=== PATIENT | female | born 1990 | race Caucasian/White ===

== ENCOUNTER 2016-07-23 10:34 | Emergency (ER) | payer MEDICAID ==
[2016-07-23 12:02] LABS: URINE APPEARANCE SL CLOUDY; URINE BILIRUBIN NEGATIVE (NEGATIVE); URINE BLOOD NEGATIVE (NEGATIVE); URINE COLOR YELLOW; URINE GLUCOSE (UA) NEGATIVE (NEGATIVE); URINE KETONE NEGATIVE (NEGATIVE); URINE LEUKOCYTE ESTERASE NEGATIVE (NEGATIVE); URINE NITRITE NEGATIVE (NEGATIVE); URINE PROTEIN NEGATIVE (NEGATIVE); URINE UROBILINOGEN 0.2 E.U./dL (0.20 - 1.00)
[2016-07-23 12:03] LABS: HCG,QUALITATIVE URINE POSITIVE (NEGATIVE)
[2016-07-23 12:32] LABS: BASO % 0.2 % (0-6); EOS % 0.6 % (0-6); GRAN % 61.4 % (47-80); HEMATOCRIT 40.7 % (35.0-47.0); HEMOGLOBIN 13.5 gm/dl (11.6-16.0); MEAN CELL VOLUME 94.4 fl (81-97); MEAN CORPUSCULAR HEMOGLOBIN 31.3 pg (27-33); MEAN CORPUSCULAR HGB CONC 33.2 g/dl (32-36); MEAN PLATELET VOLUME 9.6 fl (7.4-10.4); MONO % 10.8 % (0-9); PLATELET COUNT 217 K/uL (130-400); RED BLOOD COUNT 4.31 M/uL (3.80-5.40); RED CELL DISTRIBUTION WIDTH 13.1 % (11.5-14.5); WHITE BLOOD COUNT W/O DIFF 5.5 K/uL (4.2-12.2)
--- NOTE | 2016-07-23 14:08 | Emergency Department Record ---
History of Present Illness - General Chief complaint: Vaginal bleeding Stated complaint: CRAMPING/SPOTTING/7 WEEKS PREG Time Seen by Provider: 07/23/16 11:28 Source: Patient Mode of Arrival: Ambulatory Limitations: No limitations - History of Present Illness Initial comments: pt had some spotting and cramping which is gone now. pt called her ob and was told to go to the er and have an us.she thinks she is 7 wks preg. she is [id number] MD Complaint: Vaginal bleeding Onset/Timin -: Days(s) Location: LLQ Radiation: Non-radiating Severity: Mild Severity scale (1-10): 2 Quality: Cramping Consistency: Intermittent Improves with: None Worsens with: None Patient : Yes LMP Date: 06/04/16 Gestational Age (wks) based on LMP: 7 Associated Symptoms: Nausea/vomiting, Vaginal bleeding - Related Data Sexually active: Yes : 3 Para: 1 Home Medications Medication Instructions Recorded Confirmed Last Taken Pnv95/Ferrous Fumarate/FA 1 each PO DAILY 07/23/16 07/23/16 Unknown [ Tablet] Allergies Allergy/AdvReac Type Severity Reaction Status Date / Time amoxicillin [Amoxicillin] Allergy HIVES Verified 07/23/16 10:58 hydromorphone HCl Allergy HIVES Verified 07/23/16 10:58 [From Dilaudid] morphine Allergy HIVES Verified 07/23/16 10:58 sulfamethoxazole Allergy HIVES Verified 07/23/16 10:58 [From Bactrim] trimethoprim [From Bactrim] Allergy HIVES Verified 07/23/16 10:58 Travel Screening - Travel/Exposure Within Last 30 Days Have you traveled within the last 30 days?: No Review of Systems Reviewed: No additional complaints except as noted below Constitutional: Reports: As per HPI. Denies: Chills, Fever, Malaise, Night sweats, Weakness, Weight change Eyes: Reports: As per HPI. Denies: Eye discharge, Eye pain, Photophobia, Vision change ENT: Reports: As per HPI. Denies: Congestion, Dental pain, Ear pain, Epistaxis , Hearing loss, Throat pain Respiratory: Reports: As per HPI. Denies: Cough, Dyspnea, Hemoptysis, Stridor, Wheezes Cardiovascular: Reports: As per HPI. Denies: Arrhythmia, Chest pain, Dyspnea on exertion, Edema, Murmurs, Orthopnea, Palpitations, Paroxysmal nocturnal dyspnea, Rheumatic Fever, Syncope Endocrine: Reports: As per HPI. Denies: Fatigue, Heat or cold intolerance, Polydipsia, Polyuria Gastrointestinal: Reports: As per HPI. Denies: Abdominal pain, Constipation, Diarrhea, Hematemesis, Hematochezia, Melena, Nausea, Vomiting Genitourinary: Reports: As per HPI. Denies: Abnormal menses, Discharge, Dyspareunia, Dysuria, Frequency, Hematuria, Incontinence, Retention, Urgency Musculoskeletal: Reports: As per HPI. Denies: Arthralgia, Back pain, Gout, Joint swelling, Myalgia, Neck pain Skin: Reports: As per HPI. Denies: Bruising, Change in color, Change in hair/ nails, Lesions, Pruritus, Rash Neurological: Reports: As per HPI. Denies: Abnormal gait, Confusion, Headache, Numbness, Paresthesias, Seizure, Tingling, Tremors, Vertigo, Weakness Psychiatric: Reports: As per HPI. Denies: Anxiety, Auditory hallucinations, Depression, Homicidal thoughts, Suicidal thoughts, Visual hallucinations Hematological/Lymphatic: Reports: As per HPI. Denies: Anemia, Blood Clots, Easy bleeding, Easy bruising, Swollen glands Past Medical History - SOCIAL HISTORY Smoking Status: Current every day smoker Alcohol Use: None Drug Use: None - [employer] History : 3 Para: 1 - RESPIRATORY Hx Respiratory Disorders: No - CARDIOVASCULAR Hx Cardio Disorders: No - NEURO Hx Neuro Disorders: No - GI Hx GI Disorders: No - Hx Genitourinary Disorders: Yes Comment:: polycystic ovaries - ENDOCRINE Hx Endocrine Disorders: No - MUSCULOSKELETAL Hx Musculoskeletal Disorders: Yes Hx Back Injury: Yes Hx Musculoskeletal Disease: Yes (scoliosis) - PSYCH Hx Psych Problems: Yes Hx Anxiety: Yes - HEMATOLOGY/ONCOLOGY Hx Hematology/Oncology Disorders: No Family Medical History Any Significant Family History?: Yes Hx Cancer: Father, Mother Hx Diabetes: Grandparents Hx Heart Disease: Grandparents Physical Exam - General General Appearance: Alert, Oriented x3, Cooperative, No acute distress - Head Head exam: Normal inspection - Eye Eye exam: Normal appearance, PERRL, EOMI Pupils: Normal accommodation - ENT ENT exam: Normal exam, Mucous membranes moist, Normal external ear exam, Normal orophraynx Ear exam: Normal external inspection. negative: External canal tenderness Nasal Exam: Normal inspection. negative: Discharge, Sinus tenderness Mouth exam: Normal external inspection, Tongue normal Teeth exam: Normal inspection. negative: Dental caries Throat exam: Normal inspection. negative: Tonsillar erythema, Tonsillar exudate - Neck Neck exam: Normal inspection, Full ROM. negative: Tenderness - Respiratory Respiratory exam: Normal lung sounds bilaterally. negative: Respiratory distress - Cardiovascular Cardiovascular Exam: Regular rate, Normal rhythm, Normal heart sounds - GI/Abdominal GI/Abdominal exam: Soft, Normal bowel sounds. negative: Tenderness - Rectal Rectal exam: Deferred - exam: Deferred - Extremities Extremities exam: Normal inspection, Full ROM, Normal capillary refill. negative: Tenderness - Back Back exam: Reports: Normal inspection, Full ROM. Denies: Muscle spasm, Rash noted, Tenderness - Neurological Neurological exam: Alert, CN II-XII intact, Normal gait, Oriented X3 - Psychiatric Psychiatric exam: Normal affect, Normal mood - Skin Skin exam: Dry, Intact, Normal color, Warm Course Vital Signs 07/23/16 10:53 Temperature 98.2 F Pulse Rate 96 H Respiratory 18 Rate Blood Pressure 108/78 Pulse Ox 97 - Reevaluation(s) Reevaluation #1: 07/23/16 14:22 us shows 5wk iup yolk sack. Medical Decision Making - Lab Data Result diagrams: 07/23/16 12:27 Lab Results 07/23/16 07/23/16 07/23/16 Range/Units 11:15 12:27 12:27 WBC 5.5 (4.2-12.2) K/uL RBC 4.31 (3.80-5.40) M/uL Hgb 13.5 (11.6-16.0) gm/dl Hct 40.7 (35.0-47.0) % MCV 94.4 (81-97) fl MCH 31.3 (27-33) pg MCHC 33.2 (32-36) g/dl RDW 13.1 (11.5-14.5) % Plt Count 217 (130-400) K/uL MPV 9.6 (7.4-10.4) fl Gran % 61.4 (47-80) % Lymphocytes % 27.0 (16-45) % Monocytes % 10.8 H (0-9) % Eosinophils % 0.6 (0-6) % Basophils % 0.2 (0-6) % Total Beta HCG mIU/mL Urine Color Yellow Urine Appearance Sl cloudy Urine pH 8.0 (5.0-8.0) Ur Specific [place] 1.015 (1.002-1.030) Urine Protein Negative (NEGATIVE) Urine Glucose (UA) Negative (NEGATIVE) Urine Ketones Negative (NEGATIVE) Urine Blood Negative (NEGATIVE) Urine Nitrite Negative (NEGATIVE) Urine Bilirubin Negative (NEGATIVE) Urine Urobilinogen 0.2 (0.20 - 1.00) E.U./dL Ur Leukocyte Esterase Negative (NEGATIVE) Urine HCG, Qual Positive H (NEGATIVE) Rh Factor Positive 07/23/16 Range/Units 12:27 WBC (4.2-12.2) K/uL RBC (3.80-5.40) M/uL Hgb (11.6-16.0) gm/dl Hct (35.0-47.0) % MCV (81-97) fl MCH (27-33) pg MCHC (32-36) g/dl RDW (11.5-14.5) % Plt Count (130-400) K/uL MPV (7.4-10.4) fl Gran % (47-80) % Lymphocytes % (16-45) % Monocytes % (0-9) % Eosinophils % (0-6) % Basophils % (0-6) % Total Beta HCG 19137.00 mIU/mL Urine Color Urine Appearance Urine pH (5.0-8.0) Ur Specific [place] (1.002-1.030) Urine Protein (NEGATIVE) Urine Glucose (UA) (NEGATIVE) Urine Ketones (NEGATIVE) Urine Blood (NEGATIVE) Urine Nitrite (NEGATIVE) Urine Bilirubin (NEGATIVE) Urine Urobilinogen (0.20 - 1.00) E.U./dL Ur Leukocyte Esterase (NEGATIVE) Urine HCG, Qual (NEGATIVE) Rh Factor Disposition Disposition: Discharge Clinical Impression: Threatened Disposition: Home, Self-Care Condition: (1) Good Instructions: Threatened Miscarriage (ED) Additional Instructions: follow up with ob doctor. return sooner if worse. have repeat beta quant in 2 days. no sex until cleared by ob. Forms: Patient Portal Access
== END 2016-07-23 14:34 | disposition home or self-care (01) ==
LOC: ER 10:34
DX: O20.0 Threatened abortion (principal); Z3A.01 Less than 8 weeks gestation of pregnancy
CPT/HCPCS: 76801; 76817; 81003; 81025; 84702; 85025; 86901; 99283; 99284

== ENCOUNTER 2016-10-03 17:53 | Emergency (ER) | payer MEDICAID ==
[2016-10-03] MEDS ORDERED: LORAZEPAM 0.5 MG TABLET PO ONE ×2 (18:13→18:55)
--- NOTE | 2016-10-03 18:13 | Emergency Department Record ---
Anxiety - General Chief Complaint: Panic attack Stated Complaint: ANXIETY/PANIC ATTACK Time Seen by Provider: 10/03/16 17:58 Source: Patient Mode of Arrival: Ambulatory Limitations: No limitations - History of Present Illness Initial Comments: 25 yo female presents with anxiety attacks and passing out last night. Recently she has again started having panic attacks. She has heart palpitations , rapid breathing, numbness, of the face and hands. She has had panic attacks in the past due to loss of a to an illness. Last night she was having a panic attack and passed out briefly. She was seen by her PCP in the past for anxiety/panic attacks. She was referred to a therapist but did not go. She felt she might be able over come the panic attacks on her own. No history of heart issues or syncope. MD Complaint: Anxiety Onset/Timin -: Days(s) Symptoms: Extremity numbness/tingling Place: Home Previous History of Same: Yes (this is worse) Severity: Moderate Quality: Intermittant Provoking factors: None known Improves With: Nothing Worsens With: Nothing Associated symptoms: Anorexia - Related Data Home Medications: Previous Rx's Medication Instructions Recorded Cephalexin [Keflex] 500 mg PO TID #21 cap 10/03/16 Lorazepam [Ativan] 0.5 mg PO Q8H PRN #12 tablet 10/03/16 Allergies/Adverse Reactions: Allergies Allergy/AdvReac Type Severity Reaction Status Date / Time amoxicillin [Amoxicillin] Allergy HIVES Verified 07/23/16 10:58 hydromorphone HCl Allergy HIVES Verified 07/23/16 10:58 [From Dilaudid] morphine Allergy HIVES Verified 07/23/16 10:58 sulfamethoxazole Allergy HIVES Verified 07/23/16 10:58 [From Bactrim] trimethoprim [From Bactrim] Allergy HIVES Verified 07/23/16 10:58 Travel Screening - Travel/Exposure Within Last 30 Days Have you traveled within the last 30 days?: No Review of Systems Constitutional: Denies: Chills, Fever, Malaise, Weakness Eyes: Denies: Eye discharge, Eye pain, Photophobia, Vision change ENT: Denies: Congestion, Ear pain, Throat pain Respiratory: Denies: Cough, Dyspnea, Hemoptysis, Stridor, Wheezes Cardiovascular: Reports: As per HPI, Syncope. Denies: Chest pain Endocrine: Denies: Polydipsia, Polyuria Gastrointestinal: Denies: Abdominal pain, Diarrhea, Nausea, Vomiting Genitourinary: Denies: Dysuria Musculoskeletal: Denies: Arthralgia, Back pain, Myalgia, Neck pain Skin: Denies: Bruising, Change in color, Rash Neurological: Reports: As per HPI, Numbness, Tingling. Denies: Headache Psychiatric: Reports: As per HPI, Anxiety. Denies: Depression, Suicidal thoughts Hematological/Lymphatic: Denies: Easy bleeding, Easy bruising Past Medical History - SOCIAL HISTORY Smoking Status: Current every day smoker Alcohol Use: None Drug Use: None - RESPIRATORY Hx Respiratory Disorders: No - CARDIOVASCULAR Hx Cardio Disorders: No - NEURO Hx Neuro Disorders: No - GI Hx GI Disorders: No - Hx Genitourinary Disorders: Yes Comment:: polycystic ovaries - ENDOCRINE Hx Endocrine Disorders: No - MUSCULOSKELETAL Hx Musculoskeletal Disorders: Yes Hx Back Injury: Yes Hx Musculoskeletal Disease: Yes (scoliosis) - PSYCH Hx Psych Problems: Yes Hx Anxiety: Yes - HEMATOLOGY/ONCOLOGY Hx Hematology/Oncology Disorders: No Family Medical History Any Significant Family History?: Yes Hx Cancer: Father, Mother Hx Diabetes: Grandparents Hx Heart Disease: Grandparents Physical Exam - General General Appearance: Alert, Oriented x3, Cooperative, No acute distress, Other ( Appear calm, no distress) - Head Head exam: Normal inspection - Eye Eye exam: Normal appearance, PERRL. negative: Conjunctival injection, Periorbital swelling - ENT ENT exam: Normal exam Ear exam: Normal external inspection Nasal Exam: Normal inspection Mouth exam: Normal external inspection Teeth exam: Normal inspection - Neck Neck exam: Normal inspection, Full ROM. negative: Lymphadenopathy, Tenderness, Thyromegaly - Respiratory Respiratory exam: Normal lung sounds bilaterally. negative: Respiratory distress - Cardiovascular Cardiovascular Exam: Regular rate, Normal rhythm, Normal heart sounds. negative : Diastolic murmur, Systolic murmur - GI/Abdominal GI/Abdominal exam: Soft. negative: Tenderness - Rectal Rectal exam: Deferred - exam: Deferred - Extremities Extremities exam: Normal inspection, Full ROM, Normal capillary refill. negative: Tenderness - Back Back exam: Denies: Normal inspection (severe scoliosis) - Neurological Neurological exam: Alert, Oriented X3 - Psychiatric Psychiatric exam: Anxious. negative: Depressed, Manic, Suicidal ideation - Skin Skin exam: Dry, Intact, Normal color, Warm Course Vital Signs 10/03/16 17:56 Temperature 98.4 F Pulse Rate 83 Respiratory 20 Rate Blood Pressure 114/81 Pulse Ox 98 - Reevaluation(s) Reevaluation #1: EMR reviewed. She has been seen in the ED and by the PCP for anxiety attacks. 10/03/16 18:18 Reevaluation #2: EKG 18:16 NSR rate 88, intervals normal, axis normal, ST normal. No acute changes. 10/03/16 18:28 Reevaluation #3: The labs were reviewed No acute changes on CBC or CMP UA LE trace. 10/03/16 18:49 Reevaluation #4: UA micro with WBC, Bacteria She has had mild discomfort with urination for a few days. No fever or back pain Keflex prescribed 10/03/16 18:56 Medical Decision Making - Lab Data Result diagrams: 10/03/16 18:30 10/03/16 18:30 Disposition Disposition: Discharge Clinical Impression: Anxiety attack Syncope Qualifiers: Syncope type: unspecified Qualified Code(s): R55 - Syncope and collapse Disposition: Home, Self-Care Condition: (2) Stable Instructions: Panic Disorder (ED) Additional Instructions: Call [facility] Wednesday to closely follow up for your anxiety Only use the Ativan as instructed for anxiety attacks Return if you have any concerns, new questions or symptoms Prescriptions: Cephalexin [Keflex] 500 mg PO TID #21 cap Lorazepam [Ativan] 0.5 mg PO Q8H PRN #12 tablet PRN Reason: Anxiety Forms: Patient Portal Access Time of Disposition: 18:57 Quality - Quality Measures Quality Measures: N/A - Blood Pressure Screening View Details: Yes Blood Pressure Classification: Pre-Hypertensive BP Reading Systolic Measurement: 114 Diastolic Measurement: 81 Screening for High Blood Pressure: < Normal BP, F/U Not Required > [G8783] Normal BP Follow-up Interventions: No follow-up required
[2016-10-03 18:35] LABS: BASO % 0.3 % (0-6); EOS % 0.3 % (0-6); GRAN % 72.4 % (47-80); HEMOGLOBIN 16.2 gm/dl (11.6-16.0); LYMPH % 18.8 % (16-45); MEAN CELL VOLUME 95.1 fl (81-97); MEAN CORPUSCULAR HGB CONC 34.5 g/dl (32-36); MEAN PLATELET VOLUME 10.6 fl (7.4-10.4); MONO % 8.2 % (0-9); PLATELET COUNT 175 K/uL (130-400); RED BLOOD COUNT 4.94 M/uL (3.80-5.40); RED CELL DISTRIBUTION WIDTH 12.8 % (11.5-14.5); WHITE BLOOD COUNT W/O DIFF 7.7 K/uL (4.2-12.2)
[2016-10-03 18:36] LABS: URINE APPEARANCE CLEAR; URINE BILIRUBIN NEGATIVE (NEGATIVE); URINE BLOOD TRACE-I (NEGATIVE); URINE COLOR YELLOW; URINE GLUCOSE (UA) NEGATIVE (NEGATIVE); URINE KETONE NEGATIVE (NEGATIVE); URINE LEUKOCYTE ESTERASE SMALL (NEGATIVE); URINE NITRITE NEGATIVE (NEGATIVE); URINE PROTEIN NEGATIVE (NEGATIVE); URINE UROBILINOGEN 0.2 E.U./dL (0.20 - 1.00)
[2016-10-03 18:38] LABS: MEAN CORPUSCULAR HEMOGLOBIN 32.7 pg (27-33)
[2016-10-03 18:45] LABS: ALB/GLOB RATIO 1.5 (1.1-1.8); ALBUMIN 5.1 gm/dL (3.5-5.0); ALKALINE PHOSPHATASE 54 U/L (38-126); ALT/SGPT 20 U/L (9-52); ANION GAP 15.8 (7-16); AST/SGOT 24 U/L (14-36); BILIRUBIN,TOTAL 1.04 mg/dL (0.2-1.3); BLOOD UREA NITROGEN 11 mg/dL (7-17); CARBON DIOXIDE 21.2 mmol/L (22-30); CREATININE 0.6 mg/dL (0.52-1.04); EST GLOMERULAR FILTRATION RATE > 60 ml/min; GLUCOSE,RANDOM 90 mg/dL (70-110); TOTAL PROTEIN 8.5 gm/dL (6.3-8.2)
[2016-10-03 18:48] LABS: HCG,QUALITATIVE URINE NEGATIVE (NEGATIVE)
[2016-10-03 18:52] LABS: URINE BACTERIA 2+; URINE RBC 0 - 2 (NONE SEEN)
[2016-10-03] MEDS ORDERED: CEPHALEXIN 500 MG CAPSULE PO STA (18:55)
== END 2016-10-03 19:05 | disposition home or self-care (01) ==
LOC: ER 17:53
DX: R55 Syncope and collapse (principal); R30.0 Dysuria; F41.0 Panic disorder [episodic paroxysmal anxiety]
CPT/HCPCS: 80053; 81001; 81025; 85025; 93005; 93010; 99284

== ENCOUNTER 2016-11-23 13:28 | Emergency (ER) | payer MEDICAID ==
--- NOTE | 2016-11-23 13:43 | Emergency Department Record ---
History of Present Illness - General Chief complaint: ENT Stated complaint: DENTAL PAIN Source: Patient Mode of Arrival: Ambulatory Limitations: No limitations - History of Present Illness Initial comments: 26 yo female presents with left lower posterior dental pain for 2 days. She has mild swelling. No fevers. The pain radiates to the left ear area. No swallowing changes or voice changes. No recent dental procedures or examinations. No other current illnesses. MD complaint: Tooth pain -: Days(s) (2) Location: Tooth # (16) Severity: Severe Quality: Aching, Sharp, Stabbing Consistency: Constant Improves with: None Worsens with: Eating - Related Data Previous Rx's Medication Instructions Recorded Clindamycin HCl 300 mg PO QID #28 capsule 11/23/16 Hydrocodone/Acetaminophen [[place] 1 tab PO Q8H PRN #12 tab 11/23/16 5mg/325mg] Allergies Allergy/AdvReac Type Severity Reaction Status Date / Time amoxicillin [Amoxicillin] Allergy HIVES Verified 11/23/16 13:32 hydromorphone HCl Allergy HIVES Verified 11/23/16 13:32 [From Dilaudid] morphine Allergy HIVES Verified 11/23/16 13:32 sulfamethoxazole Allergy HIVES Verified 11/23/16 13:32 [From Bactrim] trimethoprim [From Bactrim] Allergy HIVES Verified 11/23/16 13:32 Review of Systems Constitutional: Denies: Chills, Fever, Malaise, Weakness Eyes: Denies: Eye discharge, Eye pain ENT: Reports: As per HPI, Dental pain, Ear pain (left). Denies: Congestion, Throat pain Respiratory: Denies: Cough, Dyspnea Cardiovascular: Denies: Chest pain, Syncope Endocrine: Denies: Fatigue Gastrointestinal: Denies: Abdominal pain, Diarrhea, Nausea, Vomiting Genitourinary: Denies: Dysuria, Urgency Musculoskeletal: Denies: Arthralgia, Back pain, Joint swelling, Myalgia Skin: Denies: Bruising, Change in color, Rash Neurological: Denies: Headache, Numbness, Vertigo, Weakness Psychiatric: Denies: Anxiety Hematological/Lymphatic: Denies: Easy bleeding, Easy bruising, Swollen glands Past Medical History - SOCIAL HISTORY Smoking Status: Current every day smoker Drug Use: None - RESPIRATORY Hx Respiratory Disorders: No - CARDIOVASCULAR Hx Cardio Disorders: No - NEURO Hx Neuro Disorders: No - GI Hx GI Disorders: No - Hx Genitourinary Disorders: Yes Comment:: polycystic ovaries - ENDOCRINE Hx Endocrine Disorders: No - MUSCULOSKELETAL Hx Musculoskeletal Disorders: Yes Hx Back Injury: Yes Hx Musculoskeletal Disease: Yes (scoliosis) - PSYCH Hx Psych Problems: Yes Hx Anxiety: Yes - HEMATOLOGY/ONCOLOGY Hx Hematology/Oncology Disorders: No Family Medical History Hx Cancer: Father, Mother Hx Diabetes: Grandparents Hx Heart Disease: Grandparents Physical Exam - General General Appearance: Alert, Oriented x3, Cooperative, No acute distress Limitations: No limitations - Head Head exam: Atraumatic, Normocephalic, Normal inspection Head exam detail: negative: Contusion, Hematoma Image of Face/Head: 1 - mild swelling, no erythema, no warmth. no rash. tender just under the jaw , #16 with swelling around the gum. No abscess or pus. - Eye Eye exam: Normal appearance, PERRL. negative: Conjunctival injection, Periorbital swelling - ENT ENT exam: Normal exam, Mucous membranes moist, Normal orophraynx, TM's normal bilaterally (Normal left TM) Ear exam: Normal external inspection. negative: External canal tenderness Nasal Exam: Normal inspection. negative: Discharge, Sinus tenderness Mouth exam: Normal external inspection, Tongue normal Teeth exam: Dental tenderness # (16), Gingival enlargement. negative: Dental caries, Fractured tooth # Throat exam: Normal inspection. negative: Tonsillar erythema, Tonsillar exudate Image of Mouth/Teeth: 1 - mild gum swelling, no pus - Neck Neck exam: Normal inspection, Full ROM. negative: Lymphadenopathy, Meningismus , Tenderness - Respiratory Respiratory exam: Normal lung sounds bilaterally. negative: Respiratory distress - Cardiovascular Cardiovascular Exam: Regular rate, Normal rhythm, Normal heart sounds - GI/Abdominal GI/Abdominal exam: Soft - Rectal Rectal exam: Deferred - exam: Deferred - Extremities Extremities exam: Normal inspection - Back Back exam: Denies: Normal inspection (severe kyphosis) - Neurological Neurological exam: Alert, Oriented X3 - Psychiatric Psychiatric exam: Normal affect, Normal mood - Skin Skin exam: Dry, Intact, Normal color, Warm Course - Reevaluation(s) Reevaluation #1: The patient's examination is consistent with likely dental infection as the source She was given Clindamyxin in the ED She was encourage to call her dentist for follow up this week 11/23/16 13:44 Disposition Disposition: Discharge Clinical Impression: Pain, dental Disposition: Home, Self-Care Condition: (1) Good Instructions: Dental Abscess (ED) Additional Instructions: Call your dentist this week for follow up Return if worse, fever, redness, or any new concerns Prescriptions: Clindamycin HCl 300 mg PO QID #28 capsule Hydrocodone/Acetaminophen [[place] 5mg/325mg] 1 tab PO Q8H PRN #12 tab PRN Reason: Pain - General Forms: Patient Portal Access Time of Disposition: 13:45 Quality - Quality Measures Quality Measures: N/A - Blood Pressure Screening Does Patient Have Any of the Following: No Blood Pressure Classification: Pre-Hypertensive BP Reading Systolic Measurement: 118 Diastolic Measurement: 86 Screening for High Blood Pressure: < Pre-Hypertensive BP, F/U Documented > [ [id number]] Pre-Hypertensive Follow-up Interventions: Referral to alternative/primary care provider.
[2016-11-23] MEDS: CLINDAMYCIN 150 MG CAP PO ONE (13:45)
[2016-11-23] MEDS: HYDROCODONE/APAP 5/325MG TABLET PO ONE (13:45)
== END 2016-11-23 14:05 | disposition home or self-care (01) ==
LOC: ER 13:28
DX: K08.89 Other specified disorders of teeth and supporting structures (principal)
CPT/HCPCS: 99282

== ENCOUNTER 2017-02-21 14:58 | Emergency (ER) | payer MEDICAID ==
--- NOTE | 2017-02-21 15:27 | Emergency Department Record ---
History of Present Illness - General Chief complaint: Vaginal discharge Stated complaint: VAGINAL PAIN,FREQUENT URINATION,HEAVY DISCAHRGE Time Seen by Provider: 02/21/17 15:26 Source: Patient, Family Mode of Arrival: Ambulatory Limitations: No limitations - History of Present Illness Initial comments: 26 yo female presents with some discomfort with urination, vaginal discharge and pelvic discomfort. The onset was on . No bleeding. She typical has irregularly spaced menstrual cycles. The urination gutierrez as does the discharge. She does have a history of PCOS and miscarriage. No diarrhea. No fever. No cough or upper respiratory symptoms. She has a history of PCOS and 2 miscarriages. MD Complaint: Dysuria, Pelvic pain, Vaginal discharge Onset/Timin -: Days(s) Location: LLQ, Other Radiation: Non-radiating Severity scale (1-10): 9 Quality: Stabbing Consistency: Constant Improves with: Other Worsens with: Movement Associated Symptoms: Vaginal discharge, Other - Related Data Previous Rx's Medication Instructions Recorded Cephalexin [Keflex] 500 mg PO TID #21 cap 02/21/17 Doxycycline Hyclate [Doxycycline] 100 mg PO BID #14 cap 02/21/17 Hydrocodone/Acetaminophen [[place] 1 each PO Q6H #15 tablet 02/21/17 5-325 Tablet] Allergies Allergy/AdvReac Type Severity Reaction Status Date / Time amoxicillin [Amoxicillin] Allergy HIVES Verified 02/21/17 16:05 hydromorphone HCl Allergy HIVES Verified 02/21/17 16:05 [From Dilaudid] morphine Allergy HIVES Verified 02/21/17 16:05 sulfamethoxazole Allergy HIVES Verified 02/21/17 16:05 [From Bactrim] trimethoprim [From Bactrim] Allergy HIVES Verified 02/21/17 16:05 Travel Screening - Travel/Exposure Within Last 30 Days Have you traveled within the last 30 days?: No - Travel/Exposure Within Last Year Have you traveled outside the [place] in the last year?: No - Additonal Travel Details Have you been exposed to anyone with a communicable illness?: No - Travel Symptoms Symptom Screening: None Review of Systems Constitutional: Denies: Chills, Fever, Malaise, Weakness Eyes: Denies: Eye discharge ENT: Denies: Congestion, Throat pain Respiratory: Denies: Cough, Dyspnea, Hemoptysis, Wheezes Cardiovascular: Denies: Chest pain, Syncope Endocrine: Denies: Fatigue Gastrointestinal: Reports: Abdominal pain, Nausea (few days ago, resolved. Non now.). Denies: Diarrhea, Vomiting Genitourinary: Reports: Abnormal menses, Discharge, Dysuria, Frequency, Urgency Musculoskeletal: Denies: Arthralgia, Back pain, Myalgia, Neck pain Skin: Denies: Bruising, Change in color, Rash Neurological: Denies: Headache, Numbness, Weakness Psychiatric: Denies: Anxiety Hematological/Lymphatic: Denies: Blood Clots, Easy bleeding, Easy bruising, Swollen glands Past Medical History - SOCIAL HISTORY Smoking Status: Current every day smoker Alcohol Use: None Drug Use: None - RESPIRATORY Hx Respiratory Disorders: No - CARDIOVASCULAR Hx Cardio Disorders: No - NEURO Hx Neuro Disorders: No - GI Hx GI Disorders: No - Hx Genitourinary Disorders: Yes Comment:: polycystic ovaries - ENDOCRINE Hx Endocrine Disorders: No - MUSCULOSKELETAL Hx Musculoskeletal Disorders: Yes Hx Back Injury: Yes Hx Musculoskeletal Disease: Yes (scoliosis) - PSYCH Hx Psych Problems: Yes Hx Anxiety: Yes - HEMATOLOGY/ONCOLOGY Hx Hematology/Oncology Disorders: No Family Medical History Any Significant Family History?: Yes Hx Cancer: Father, Mother Hx Diabetes: Grandparents Hx Heart Disease: Grandparents Physical Exam - General General Appearance: Alert, Oriented x3, Cooperative, No acute distress Limitations: No limitations - Head Head exam: Normal inspection - Eye Eye exam: Normal appearance, PERRL. negative: Conjunctival injection, Scleral icterus - ENT ENT exam: Normal exam, Mucous membranes moist Ear exam: Normal external inspection Nasal Exam: Normal inspection - Neck Neck exam: Normal inspection - GI/Abdominal GI/Abdominal exam: Soft - Rectal Rectal exam: Normal inspection - exam: Adnexal tenderness (L), Normal external exam, Vaginal discharge, Other. negative: Abnormal external exam, Adnexal mass (L), Adnexal mass (R), Adnexal tenderness (R), Cervical discharge, cervical motion tenderness, Normal bimanual exam (On bimanual then is a firm palpable area in the vaginal vault to the left, ), Vaginal bleeding, Vaginal erythema - Extremities Extremities exam: Normal inspection - Back Back exam: Reports: Full ROM. Denies: Normal inspection (scoliosis), Muscle spasm, Rash noted, Tenderness - Neurological Neurological exam: Alert, Normal gait, Oriented X3 - Psychiatric Psychiatric exam: Normal affect, Normal mood - Skin Skin exam: Dry, Intact, Normal color, Warm Course Vital Signs 02/21/17 15:18 Temperature 98.6 F Pulse Rate 92 H Respiratory 18 Rate Blood Pressure 126/99 Pulse Ox 99 - Reevaluation(s) Reevaluation #1: 02/21/17 16:21 The HCG was negative The Wet Prep is negative The UA is positive for LE and bacteria with some epi's Given her symptoms with dysuria she will be treated with antibiotics with culture of UA 02/21/17 16:29 The results were discussed with the patient We discussed options of arranging and US tonight in a transfer Given the tender firm area within the vagina I recommend US and possible UNIT CLERK consult She is in agreement and willing to transfer by POV 02/21/17 16:43 02/21/17 16:52 I SW the [facility] ED attending Dr Simpson He agrees with accepting the transfer for possible US/ UNIT CLERK consult 02/21/17 17:01 Doxycycline added to Rx list and sent to her pharmacy Disposition Disposition: Discharge Clinical Impression: Dysuria, Pelvic pain Disposition: Home, Self-Care Transfer To: [facility] ED Reason For Transfer: Pelvic pain, US, UNIT CLERK Consult Accepting Physician: Calvin Time Discussed w/Accepting Physician: 16:39 Condition: (1) Good Instructions: Pelvic Pain in Women (ED), Dysuria (ED) Additional Instructions: I recommend transfer to the [facility] ER for possible US or profile shaper operator consultation Prescriptions: Cephalexin [Keflex] 500 mg PO TID #21 cap Doxycycline Hyclate [Doxycycline] 100 mg PO BID #14 cap Hydrocodone/Acetaminophen [Bruner 5-325 Tablet] 1 each PO Q6H #15 tablet Forms: Patient Portal Access Time of Disposition: 16:28 Quality - Quality Measures Quality Measures: N/A - Blood Pressure Screening Does Patient Have Any of the Following: No Blood Pressure Classification: Pre-Hypertensive BP Reading Systolic Measurement: 122 Diastolic Measurement: 86 Screening for High Blood Pressure: < Pre-Hypertensive BP, F/U Documented > [ G8950] Pre-Hypertensive Follow-up Interventions: Referral to alternative/primary care provider.
[2017-02-21] MEDS ORDERED: IBUPROFEN 600 MG TABLET PO ONE (15:31)
[2017-02-21] MEDS ORDERED: HYDROCODONE/APAP 7.5/325MG TABLET PO ONE (15:32)
[2017-02-21 15:48] LABS: URINE APPEARANCE SL CLOUDY; URINE BILIRUBIN NEGATIVE (NEGATIVE); URINE BLOOD NEGATIVE (NEGATIVE); URINE COLOR YELLOW; URINE GLUCOSE (UA) NEGATIVE (NEGATIVE); URINE KETONE NEGATIVE (NEGATIVE); URINE LEUKOCYTE ESTERASE LARGE (NEGATIVE); URINE NITRITE NEGATIVE (NEGATIVE); URINE PROTEIN NEGATIVE (NEGATIVE); URINE UROBILINOGEN 0.2 E.U./dL (0.20 - 1.00)
[2017-02-21 15:56] LABS: HCG,QUALITATIVE URINE NEGATIVE (NEGATIVE); URINE BACTERIA FEW; URINE EPITHELIAL CELLS 36 - 50 (FEW); URINE RBC NONE SEEN (NONE SEEN)
[2017-02-21] MEDS ORDERED: DOXYCYCLINE HYCLATE 100 MG CAPSULE PO ONE (17:00)
[2017-02-22 14:41] LABS: GC SPECIMEN TYPE Vaginal
== END 2017-02-21 17:02 | disposition home or self-care (01) ==
LOC: ER 14:58
DX: R10.2 Pelvic and perineal pain (principal); R30.0 Dysuria; N89.8 Other specified noninflammatory disorders of vagina
CPT/HCPCS: 99284 ×2; 81001; 81025; Q0111; 87210

== ENCOUNTER 2017-04-18 15:19 | Emergency (ER) | payer MEDICAID ==
--- NOTE | 2017-04-18 15:58 | Emergency Department Record ---
History of Present Illness - General Chief complaint: Dental Stated complaint: RT SIDE TOOTH PAIN Time Seen by Provider: 04/18/17 15:50 Source: Patient Mode of Arrival: Ambulatory - History of Present Illness Initial comments: toothache upper right tooth pain molar. started 3 days ago. Motrin 800 mg and two extra motrin 200 mg yesterday and 800mg motrin this am. complaint: Tooth pain Onset/Timin -: Days(s) Severity: Moderate Severity scale (1-10): 7 Quality: Aching, Other Consistency: Constant Improves with: None Worsens with: Eating, Other Context- Dental: History of dental caries Associated Symptoms: Toothache - Related Data Previous Rx's Medication Instructions Recorded Cephalexin [Keflex] 500 mg PO QID #40 cap 04/18/17 Naproxen [Naprosyn] 500 mg PO Q12H #20 tab. 04/18/17 Allergies Allergy/AdvReac Type Severity Reaction Status Date / Time amoxicillin [Amoxicillin] Allergy HIVES Verified 04/18/17 15:23 hydromorphone HCl Allergy HIVES Verified 04/18/17 15:23 [From Dilaudid] morphine Allergy HIVES Verified 04/18/17 15:23 sulfamethoxazole Allergy HIVES Verified 04/18/17 15:23 [From Bactrim] trimethoprim [From Bactrim] Allergy HIVES Verified 04/18/17 15:23 Travel Screening - Travel/Exposure Within Last 30 Days Have you traveled within the last 30 days?: No - Travel/Exposure Within Last Year Have you traveled outside the [place] in the last year?: No - Additonal Travel Details Have you been exposed to anyone with a communicable illness?: No - Travel Symptoms Symptom Screening: None Review of Systems Reviewed: No additional complaints except as noted below Constitutional: Reports: As per HPI. Denies: Chills, Fever, Malaise, Night sweats, Weakness, Weight change Eyes: Reports: As per HPI. Denies: Eye discharge, Eye pain, Photophobia, Vision change ENT: Reports: As per HPI, Dental pain. Denies: Congestion, Ear pain, Epistaxis , Hearing loss, Throat pain Respiratory: Reports: As per HPI. Denies: Cough, Dyspnea, Hemoptysis, Stridor, Wheezes Cardiovascular: Reports: As per HPI. Denies: Arrhythmia, Chest pain, Dyspnea on exertion, Edema, Murmurs, Orthopnea, Palpitations, Paroxysmal nocturnal dyspnea, Rheumatic Fever, Syncope Endocrine: Reports: As per HPI. Denies: Fatigue, Heat or cold intolerance, Polydipsia, Polyuria Gastrointestinal: Reports: As per HPI. Denies: Abdominal pain, Constipation, Diarrhea, Hematemesis, Hematochezia, Melena, Nausea, Vomiting Genitourinary: Reports: As per HPI. Denies: Abnormal menses, Discharge, Dyspareunia, Dysuria, Frequency, Hematuria, Incontinence, Retention, Urgency Musculoskeletal: Reports: As per HPI. Denies: Arthralgia, Back pain, Gout, Joint swelling, Myalgia, Neck pain Skin: Reports: As per HPI. Denies: Bruising, Change in color, Change in hair/ nails, Lesions, Pruritus, Rash Neurological: Reports: As per HPI. Denies: Abnormal gait, Confusion, Headache, Numbness, Paresthesias, Seizure, Tingling, Tremors, Vertigo, Weakness Psychiatric: Reports: As per HPI. Denies: Anxiety, Auditory hallucinations, Depression, Homicidal thoughts, Suicidal thoughts, Visual hallucinations Hematological/Lymphatic: Reports: As per HPI. Denies: Anemia, Blood Clots, Easy bleeding, Easy bruising, Swollen glands Past Medical History - SOCIAL HISTORY Smoking Status: Current every day smoker Alcohol Use: None Drug Use: None - RESPIRATORY Hx Respiratory Disorders: No - CARDIOVASCULAR Hx Cardio Disorders: No - NEURO Hx Neuro Disorders: No - GI Hx GI Disorders: No - Hx Genitourinary Disorders: Yes Comment:: polycystic ovaries - ENDOCRINE Hx Endocrine Disorders: No - MUSCULOSKELETAL Hx Musculoskeletal Disorders: Yes Hx Back Injury: Yes Hx Musculoskeletal Disease: Yes (scoliosis) - PSYCH Hx Psych Problems: Yes Hx Anxiety: Yes - HEMATOLOGY/ONCOLOGY Hx Hematology/Oncology Disorders: No Family Medical History Any Significant Family History?: Yes Hx Cancer: Father, Mother Hx Diabetes: Grandparents Hx Heart Disease: Grandparents Physical Exam - General General Appearance: Alert, Oriented x3, Cooperative, No acute distress - Head Head exam: Normal inspection - Eye Eye exam: Normal appearance, PERRL Pupils: Normal accommodation - ENT ENT exam: Normal exam, Mucous membranes moist, Normal external ear exam, Normal orophraynx, TM's normal bilaterally Ear exam: Normal external inspection. negative: External canal tenderness Nasal Exam: Normal inspection. negative: Discharge, Sinus tenderness Mouth exam: Normal external inspection, Tongue normal Teeth exam: Dental caries, Dental tenderness # (right upper molar), Fractured tooth # Throat exam: Normal inspection. negative: Tonsillar erythema, Tonsillar exudate - Neck Neck exam: Normal inspection, Full ROM. negative: Tenderness - Respiratory Respiratory exam: Normal lung sounds bilaterally. negative: Respiratory distress - Cardiovascular Cardiovascular Exam: Regular rate, Normal rhythm, Normal heart sounds - GI/Abdominal GI/Abdominal exam: Soft, Normal bowel sounds. negative: Tenderness - Rectal Rectal exam: Deferred - exam: Deferred - Extremities Extremities exam: Normal inspection, Full ROM, Normal capillary refill. negative: Tenderness - Back Back exam: Reports: Normal inspection, Full ROM. Denies: Muscle spasm, Rash noted, Tenderness - Neurological Neurological exam: Alert, Normal gait, Oriented X3, Reflexes normal - Psychiatric Psychiatric exam: Normal affect, Normal mood - Skin Skin exam: Dry, Intact, Normal color, Warm Course Vital Signs 04/18/17 15:27 Temperature 98.2 F Pulse Rate 108 H Respiratory 16 Rate Blood Pressure 141/93 Pulse Ox 98 Disposition Clinical Impression: Toothache Disposition: Home, Self-Care Condition: (1) Good Instructions: Toothache (ED) Additional Instructions: follow up with dentist in 1-3 days dental floss rinse mouth with warm water stop motrin and take naprosyn Prescriptions: Cephalexin [Keflex] 500 mg PO QID #40 cap Naproxen [Naprosyn] 500 mg PO Q12H #20 tab Time of Disposition: 16:03 Quality - Quality Measures Quality Measures: N/A - Blood Pressure Screening Does Patient Have Any of the Following: No Blood Pressure Classification: Hypertensive Reading Systolic Measurement: 141 Diastolic Measurement: 93 Screening for High Blood Pressure: < First Hypertensive BP, F/U Documented > [ G8950] First Hypertensive Follow-up Interventions: Referral to alternative/primary care provider.
== END 2017-04-18 16:25 | disposition home or self-care (01) ==
LOC: ER 15:19
DX: K02.9 Dental caries, unspecified (principal); F17.210 Nicotine dependence, cigarettes, uncomplicated
CPT/HCPCS: 99282

== ENCOUNTER 2017-06-11 16:31 | Emergency (ER) | payer MEDICAID ==
--- NOTE | 2017-06-11 17:06 | Emergency Department Record ---
History of Present Illness - General Chief complaint: Extremity Problem Stated complaint: PAIN IN RT ARM Time Seen by Provider: 06/11/17 16:56 Source: Patient Mode of Arrival: Ambulatory Limitations: No limitations - History of Present Illness Initial comments: 26 yo female presents with right upper extremity pain that she noticed today. She was feeling in her axilla on the right and felt a longitudinal swollen tender area. No trauma. No history of DVT. She is a smoker. She has tenderness under the inner side of the arm from the axilla. No fever or redness. MD Complaint: Extremity pain Onset/Timin -: Hour(s) Location: Right, Arm, Shoulder, Other Quality: Aching Consistency: Constant Improves with: Nothing Worsens with: Nothing - Related Data Home Medications Medication Instructions Recorded Confirmed Last Taken No Home Med [NO HOME MEDS] 06/11/17 06/11/17 Unknown Allergies Allergy/AdvReac Type Severity Reaction Status Date / Time amoxicillin [Amoxicillin] Allergy HIVES Verified 06/11/17 16:46 hydromorphone HCl Allergy HIVES Verified 06/11/17 16:46 [From Dilaudid] morphine Allergy HIVES Verified 06/11/17 16:46 sulfamethoxazole Allergy HIVES Verified 06/11/17 16:46 [From Bactrim] trimethoprim [From Bactrim] Allergy HIVES Verified 06/11/17 16:46 Travel Screening - Travel/Exposure Within Last 30 Days Have you traveled within the last 30 days?: No - Travel/Exposure Within Last Year Have you traveled outside the [place] in the last year?: No - Additonal Travel Details Have you been exposed to anyone with a communicable illness?: No - Travel Symptoms Symptom Screening: None Review of Systems Constitutional: Denies: Chills, Fever, Malaise, Weakness Eyes: Denies: Eye discharge ENT: Denies: Congestion, Throat pain Respiratory: Denies: Cough, Dyspnea Cardiovascular: Denies: Chest pain, Syncope Endocrine: Denies: Fatigue Gastrointestinal: Denies: Abdominal pain, Diarrhea, Nausea, Vomiting Genitourinary: Denies: Dysuria Musculoskeletal: Reports: Myalgia, Other. Denies: Arthralgia, Back pain, Joint swelling Skin: Denies: Bruising, Change in color, Rash Neurological: Denies: Headache, Numbness, Weakness Psychiatric: Denies: Anxiety Hematological/Lymphatic: Denies: Blood Clots, Easy bleeding, Easy bruising, Swollen glands Past Medical History - SOCIAL HISTORY Smoking Status: Current every day smoker Alcohol Use: Rare Drug Use: None - RESPIRATORY Hx Respiratory Disorders: No - CARDIOVASCULAR Hx Cardio Disorders: No - NEURO Hx Neuro Disorders: No - GI Hx GI Disorders: No - Hx Genitourinary Disorders: Yes Comment:: polycystic ovaries - ENDOCRINE Hx Endocrine Disorders: No - MUSCULOSKELETAL Hx Musculoskeletal Disorders: Yes Hx Back Injury: Yes Hx Musculoskeletal Disease: Yes (scoliosis) - PSYCH Hx Psych Problems: Yes Hx Anxiety: Yes - HEMATOLOGY/ONCOLOGY Hx Hematology/Oncology Disorders: No Family Medical History Any Significant Family History?: No Hx Cancer: Father, Mother Hx Diabetes: Grandparents Hx Heart Disease: Grandparents Physical Exam - General General Appearance: Alert, Oriented x3, Cooperative, No acute distress Limitations: No limitations - Head Head exam: Atraumatic, Normal inspection - Eye Eye exam: Normal appearance. negative: Conjunctival injection - ENT ENT exam: Normal exam Ear exam: Normal external inspection Nasal Exam: Normal inspection Mouth exam: Normal external inspection - Neck Neck exam: Normal inspection - Cardiovascular Cardiovascular Exam: Regular rate, Normal rhythm, Normal heart sounds Peripheral Pulses: 2+: Radial (R) - Rectal Rectal exam: Deferred - exam: Deferred - Extremities Extremities exam: Normal inspection, Tenderness, Other (The patient is tender under the right axilla, there is a linear tender palpable area from the axilla extending distally about 6 cm. No abscess. No warmth or erythema.). negative : Full ROM - Neurological Neurological exam: Alert, Oriented X3 - Psychiatric Psychiatric exam: Normal affect, Normal mood. negative: Agitated, Anxious - Skin Skin exam: Dry, Intact, Normal color, Warm Course Vital Signs 06/11/17 16:36 Temperature 98.4 F Pulse Rate 97 H Respiratory 18 Rate Blood Pressure 134/94 Pulse Ox 98 - Reevaluation(s) Reevaluation #1: I discussed with the patient that a linear, palpable, tender area could be an upper extremity DVT. I recommended an US. US is not available at [facility] at this time or through the remainder of the weekend. I recommended calling another hospital where this service is available. She prefers [facility]. 06/11/17 17:08 06/11/17 17:[address] Ferguson. He accepts the patient for transfer for US. 06/11/17 17:27 She is stable for transfer by private car Disposition Disposition: Transfer Clinical Impression: Pain in right axilla Disposition: Acute Care Hospital Transfer Transfer To: [facility] Reason For Transfer: Upper Extremity US to Rule out DVT Accepting Physician: Marty Time Discussed w/Accepting Physician: 17:11 Condition: (1) Good Additional Instructions: Go directly to [facility] ER for evaluation for possible Ultrasound of the area of swelling and pain. Forms: Patient Portal Access Time of Disposition: 17:11 Quality - Quality Measures Quality Measures: N/A - Blood Pressure Screening Does Patient Have Any of the Following: No Blood Pressure Classification: Hypertensive Reading Systolic Measurement: 134 Diastolic Measurement: 94 Screening for High Blood Pressure: < Pre-Hypertensive BP, F/U Documented > [ G8950] Pre-Hypertensive Follow-up Interventions: Referral to alternative/primary care provider.
[2017-06-11] MEDS ORDERED: HYDROCODONE/APAP 7.5/325MG TABLET PO ONE (17:12)
== END 2017-06-11 17:51 | disposition short-term general hospital (02) ==
LOC: ER 16:31
DX: M79.621 Pain in right upper arm (principal); F17.210 Nicotine dependence, cigarettes, uncomplicated
CPT/HCPCS: 99283

== ENCOUNTER 2017-10-05 16:46 | Emergency (ER) | payer MEDICAID ==
--- NOTE | 2017-10-05 17:12 | Emergency Department Record ---
History of Present Illness - General Chief complaint: Mouth sores/ulcers Stated complaint: MOUTH ABCESS Time Seen by Provider: 10/05/17 17:07 Source: Patient Mode of Arrival: Ambulatory Limitations: No limitations - History of Present Illness Initial comments: recurrent dental issues with infections MD complaint: Tooth pain Onset/Timin -: Days(s) Location: Tooth # (17) Severity: Moderate Severity scale (1-10): 8 Quality: Aching, Sharp Consistency: Constant Improves with: None Worsens with: None Context- Dental: Other - Related Data Previous Rx's Medication Instructions Recorded Clindamycin HCl 300 mg PO QID 7 Days #28 capsule 10/05/17 Hydrocodone/Acetaminophen [[place] 1 each PO Q6HR 2 Days #6 tablet 10/05/17 5-325 Tablet] Allergies Allergy/AdvReac Type Severity Reaction Status Date / Time amoxicillin [Amoxicillin] Allergy HIVES Verified 06/11/17 16:46 hydromorphone HCl Allergy HIVES Verified 06/11/17 16:46 [From Dilaudid] morphine Allergy HIVES Verified 06/11/17 16:46 sulfamethoxazole Allergy HIVES Verified 06/11/17 16:46 [From Bactrim] trimethoprim [From Bactrim] Allergy HIVES Verified 06/11/17 16:46 Travel Screening - Travel/Exposure Within Last 30 Days Have you traveled within the last 30 days?: No Review of Systems Constitutional: Denies: Chills, Fever, Malaise Eyes: Denies: Eye pain, Vision change ENT: Reports: Dental pain. Denies: Congestion, Ear pain, Epistaxis, Throat pain Respiratory: Denies: Cough, Dyspnea Cardiovascular: Denies: Chest pain Endocrine: Denies: Fatigue Gastrointestinal: Denies: Abdominal pain Genitourinary: Denies: Abnormal menses Skin: Denies: Rash Psychiatric: Denies: Anxiety Past Medical History - SOCIAL HISTORY Smoking Status: Current every day smoker Alcohol Use: None Drug Use: None - RESPIRATORY Hx Respiratory Disorders: No - CARDIOVASCULAR Hx Cardio Disorders: No - NEURO Hx Neuro Disorders: No - GI Hx GI Disorders: No - Hx Genitourinary Disorders: Yes Comment:: polycystic ovaries - ENDOCRINE Hx Endocrine Disorders: No - MUSCULOSKELETAL Hx Musculoskeletal Disorders: Yes Hx Back Injury: Yes Hx Musculoskeletal Disease: Yes (scoliosis) - PSYCH Hx Psych Problems: Yes Hx Anxiety: Yes - HEMATOLOGY/ONCOLOGY Hx Hematology/Oncology Disorders: No Family Medical History Any Significant Family History?: Yes Hx Cancer: Father, Mother Hx Diabetes: Grandparents Hx Heart Disease: Grandparents Physical Exam - General General Appearance: Alert, Oriented x3, Cooperative Limitations: No limitations - Head Head exam: Atraumatic - Eye Eye exam: Normal appearance, PERRL, EOMI - ENT ENT exam: Normal exam Nasal Exam: Normal inspection Mouth exam: Other (slight swelling at angle of jaw lwft with tenderness.) Teeth exam: Dental tenderness # (tooth #17 with swelling and erythema around base of tooth, no fluctuance or drainage) Throat exam: Normal inspection. negative: R peritonsillar mass, L peritonsillar mass - Neck Neck exam: Full ROM, Lymphadenopathy. negative: Meningismus - Respiratory Respiratory exam: Normal lung sounds bilaterally. negative: Wheezes - Cardiovascular Cardiovascular Exam: negative: Regular rate, Normal rhythm - GI/Abdominal GI/Abdominal exam: Soft. negative: Tenderness - Extremities Extremities exam: Normal inspection - Neurological Neurological exam: Alert, Oriented X3 - Psychiatric Psychiatric exam: Normal affect, Normal mood - Skin Skin exam: negative: Rash Course Vital Signs 10/05/17 16:55 Temperature 98.9 F Pulse Rate [ 94 H Pulse Ox Probe] Respiratory 20 Rate Blood Pressure 142/98 [Left Arm] Pulse Ox 98 Disposition Disposition: Discharge Clinical Impression: Dental abscess, Pain, dental Disposition: Home, Self-Care Condition: (1) Good Instructions: Dental Abscess (ED) Prescriptions: Hydrocodone/Acetaminophen [[place] 5-325 Tablet] 1 each PO Q6HR 2 Days #6 tablet Clindamycin HCl 300 mg PO QID 7 Days #28 capsule Forms: Patient Portal Access Quality - Quality Measures Quality Measures: N/A - Blood Pressure Screening Does Patient Have Any of the Following: No Blood Pressure Classification: Hypertensive Reading Systolic Measurement: 142 Diastolic Measurement: 98 Screening for High Blood Pressure: < Pre-Hypertensive BP, F/U Documented > [ G8950] Pre-Hypertensive Follow-up Interventions: Lifestyle modifications. Lifestyle Modification: Dietary Sodium Restriction
== END 2017-10-05 17:32 | disposition home or self-care (01) ==
LOC: ER 16:46
DX: K04.7 Periapical abscess without sinus (principal); F17.210 Nicotine dependence, cigarettes, uncomplicated
CPT/HCPCS: 99282

== ENCOUNTER 2018-01-14 22:13 | Emergency (ER) | payer MEDICAID ==
[2018-01-14] MEDS ORDERED: DIPHENHYDRAMINE HCL 50 MG/ML VIAL IM ONE (22:36)
[2018-01-14] MEDS ORDERED: PREDNISONE 20 MG TAB PO ONE (22:39)
--- NOTE | 2018-01-14 22:44 | Emergency Department Record ---
History of Present Illness - General Chief complaint: Bite Insect/other Stated complaint: INSECT BITE Time Seen by Provider: 01/14/18 22:20 Source: Patient Mode of Arrival: Ambulatory Limitations: No limitations - History of Present Illness Initial comments: The patient was stung over the L 5th toe dorsally about 30 minutes prior to presenting to the ER. She is having L foot pain and swelling and slight redness. The patient denies any SOB, TETE, or difficulty swallowing but she is having a very mild urticarial rash to her trunk with mild itching. She does have a hx of local allergic rxns to bee stings. Additionally the patient is 8 weeks . MD complaint: Insect bite/sting, Rash Onset/Timin Hx Tetanus Toxoid Vaccination: Yes Year of Tetanus Vaccination: 2014 Location: L foot Consistency: Constant Improves with: None Context: Witnessed insect bite Associated symptoms: Itching Treatments Prior to Arrival: None - Related Data Previous Rx's Medication Instructions Recorded Prednisone [Prednisone 20Mg] 40 mg PO DAILY #6 tab 01/14/18 Allergies Allergy/AdvReac Type Severity Reaction Status Date / Time amoxicillin [Amoxicillin] Allergy HIVES Unverified 10/13/17 11:40 hydromorphone HCl Allergy HIVES Unverified 10/13/17 11:40 [From Dilaudid] morphine Allergy HIVES Unverified 10/13/17 11:40 sulfamethoxazole Allergy HIVES Unverified 10/13/17 11:40 [From Bactrim] trimethoprim [From Bactrim] Allergy HIVES Unverified 10/13/17 11:40 Travel Screening - Travel/Exposure Within Last 30 Days Have you traveled within the last 30 days?: No Review of Systems Constitutional: Denies: Chills, Fever Eyes: Denies: Eye discharge ENT: Denies: Congestion Respiratory: Denies: Cough, Dyspnea Past Medical History - SOCIAL HISTORY Smoking Status: Current every day smoker Alcohol Use: None Drug Use: None - RESPIRATORY Hx Respiratory Disorders: No - CARDIOVASCULAR Hx Cardio Disorders: No - NEURO Hx Neuro Disorders: No - GI Hx GI Disorders: No - Hx Genitourinary Disorders: Yes Comment:: polycystic ovaries - ENDOCRINE Hx Endocrine Disorders: No - MUSCULOSKELETAL Hx Musculoskeletal Disorders: Yes Hx Back Injury: Yes Hx Musculoskeletal Disease: Yes (scoliosis) - PSYCH Hx Psych Problems: Yes Hx Anxiety: Yes - HEMATOLOGY/ONCOLOGY Hx Hematology/Oncology Disorders: No Family Medical History Any Significant Family History?: Yes Hx Cancer: Father, Mother Hx Diabetes: Grandparents Hx Heart Disease: Grandparents Physical Exam - General General Appearance: Alert, Oriented x3, Cooperative, No acute distress - Head Head exam: Atraumatic, Normocephalic, Normal inspection - Eye Eye exam: Normal appearance, PERRL - ENT Throat exam: Normal inspection. negative: Tonsillar erythema, Tonsillar exudate - Neck Neck exam: Normal inspection, Full ROM. negative: Tenderness - Respiratory Respiratory exam: Normal lung sounds bilaterally. negative: Respiratory distress - Cardiovascular Cardiovascular Exam: Regular rate, Normal rhythm, Normal heart sounds - Extremities Extremities exam: Full ROM. negative: Normal inspection (There is slight erythema and trace edema to the distal L foot. ), Pedal edema - Skin Skin exam: Urticaria (There is a very faint trace urticarial rash to the trunk but it seems to have faded since the onset per the patient.) Course Vital Signs 01/14/18 22:26 Temperature 98.4 F Pulse Rate [ 101 H Pulse Ox Probe] Respiratory 20 Rate Blood Pressure 121/87 [Left Arm] Pulse Ox 96 - Reevaluation(s) Reevaluation #1: The patient is doing better at this time. She denies any itching now and has had no SOB or TETE or difficulty swallowing. Her body rash has resolved also. 01/14/18 23:06 Reevaluation #2: The patient is doing a lot better at this time. She states the foot swelling and erythema continues to slowly improve and she has no TETE, SOB, or itching. 01/14/18 23:35 Disposition Disposition: Discharge Clinical Impression: Allergic reaction to bee sting Disposition: Home, Self-Care Condition: (2) Stable Instructions: Insect Bite or Sting (ED) Additional Instructions: Please continue to take Benadryl 25 mg 4 times a day for 5 days and continue the Prednisone tomorrow. Please return to the ER for any worsening symptoms of foot pain or swelling, or any trouble breathing, shortness of breath or sking rash. Prescriptions: Prednisone [Prednisone 20Mg] 40 mg PO DAILY #6 tab Forms: Patient Portal Access Time of Disposition: 23:38 Quality - Quality Measures Quality Measures: N/A - Blood Pressure Screening View Details: Yes Does Patient Have Any of the Following: No Blood Pressure Classification: Pre-Hypertensive BP Reading Systolic Measurement: 111 Diastolic Measurement: 80 Screening for High Blood Pressure: < Pre-Hypertensive BP, F/U Documented > [ G8950] Pre-Hypertensive Follow-up Interventions: Referral to alternative/primary care provider.
[2018-01-14] MEDS ORDERED: ACETAMINOPHEN 325 MG TAB PO ONE (23:05)
== END 2018-01-14 23:49 | disposition home or self-care (01) ==
LOC: ER 22:13
DX: T63.441A Toxic effect of venom of bees, accidental (unintentional), initial encounter (principal); L50.0 Allergic urticaria; Z33.1 Pregnant state, incidental
CPT/HCPCS: 99282; 96372; 99283; J7512; J1200

== ENCOUNTER 2018-02-25 18:47 | Emergency (ER) | payer MEDICAID ==
[2018-02-25 19:06] LABS: URINE APPEARANCE CLEAR; URINE BILIRUBIN NEGATIVE (NEGATIVE); URINE BLOOD TRACE-I (NEGATIVE); URINE COLOR YELLOW; URINE GLUCOSE (UA) NEGATIVE (NEGATIVE); URINE KETONE TRACE (NEGATIVE); URINE LEUKOCYTE ESTERASE MODERATE (NEGATIVE); URINE NITRITE NEGATIVE (NEGATIVE); URINE PROTEIN NEGATIVE (NEGATIVE); URINE UROBILINOGEN 0.2 E.U./dL (0.20 - 1.00)
--- NOTE | 2018-02-25 19:09 | Emergency Department Record ---
History of Present Illness - General Chief complaint: Female Urogenital Problem Stated complaint: YEAST INFECTION/VAG Time Seen by Provider: 02/25/18 19:02 Source: Patient Mode of Arrival: Ambulatory Limitations: No limitations - History of Present Illness Initial comments: 27 yo female at 14 weeks presents with itchy vaginal discharge for 2- 3 days that started after a course of Keflex for a UTI. No vaginal pain or bleeding. Her 14 weeks have gone well. No nausea or vomiting. She was treated last month for a yeast infection by her OB in [place]. MD Complaint: Dysuria, Vaginal discharge -: Days(s) (2-3) Location: Perineum Radiation: Non-radiating Severity: Mild Quality: Other (itches) Improves with: None Worsens with: Urination Patient : Yes (14 weeks, no complications) Associated Symptoms: Denies other symptoms - Related Data Sexually active: Yes Previous Rx's Medication Instructions Recorded Prednisone [Prednisone 20Mg] 40 mg PO DAILY #6 tab 01/14/18 Clotrimazole [Clotrimazole AF] 30 gm TP BID #1 cream..g. 02/25/18 Metronidazole [Flagyl] 500 mg PO BID #14 tablet 02/25/18 Allergies Allergy/AdvReac Type Severity Reaction Status Date / Time amoxicillin [Amoxicillin] Allergy HIVES Unverified 10/13/17 11:40 hydromorphone HCl Allergy HIVES Unverified 10/13/17 11:40 [From Dilaudid] morphine Allergy HIVES Unverified 10/13/17 11:40 sulfamethoxazole Allergy HIVES Unverified 10/13/17 11:40 [From Bactrim] trimethoprim [From Bactrim] Allergy HIVES Unverified 10/13/17 11:40 Review of Systems Constitutional: Denies: Chills, Fever, Malaise, Weakness Eyes: Denies: Eye discharge ENT: Denies: Congestion, Throat pain Respiratory: Denies: Cough Cardiovascular: Denies: Chest pain Endocrine: Denies: Fatigue, Polydipsia, Polyuria Gastrointestinal: Denies: Abdominal pain, Diarrhea, Nausea, Vomiting Genitourinary: Reports: As per HPI, Abnormal menses, Discharge, Dysuria. Denies : Urgency Musculoskeletal: Denies: Arthralgia, Back pain, Myalgia Skin: Denies: Bruising, Change in color, Rash Neurological: Denies: Headache Psychiatric: Denies: Anxiety Hematological/Lymphatic: Denies: Easy bleeding, Easy bruising Past Medical History - SOCIAL HISTORY Smoking Status: Current every day smoker Drug Use: None - RESPIRATORY Hx Respiratory Disorders: No - CARDIOVASCULAR Hx Cardio Disorders: No - NEURO Hx Neuro Disorders: No - GI Hx GI Disorders: No - Hx Genitourinary Disorders: Yes Comment:: polycystic ovaries - ENDOCRINE Hx Endocrine Disorders: No - MUSCULOSKELETAL Hx Musculoskeletal Disorders: Yes Hx Back Injury: Yes Hx Musculoskeletal Disease: Yes (scoliosis) - PSYCH Hx Psych Problems: Yes Hx Anxiety: Yes - HEMATOLOGY/ONCOLOGY Hx Hematology/Oncology Disorders: No Family Medical History Hx Cancer: Father, Mother Hx Diabetes: Grandparents Hx Heart Disease: Grandparents Physical Exam - General General Appearance: Alert, Oriented x3, Cooperative, No acute distress Limitations: No limitations - Head Head exam: Atraumatic, Normal inspection - ENT ENT exam: Normal exam Ear exam: Normal external inspection Nasal Exam: Normal inspection Mouth exam: Normal external inspection - Neck Neck exam: Normal inspection - GI/Abdominal GI/Abdominal exam: Soft. negative: Tenderness - exam: Normal external exam, Vaginal discharge (thick chunky, no bleeding). negative: Abnormal external exam, Vaginal bleeding, Vaginal erythema - Extremities Extremities exam: Normal inspection - Back Back exam: Denies: Normal inspection (extreme scoliosis) - Neurological Neurological exam: Alert, Oriented X3 - Psychiatric Psychiatric exam: Normal affect, Normal mood - Skin Skin exam: Dry, Intact, Normal color, Warm Course - Reevaluation(s) Reevaluation #1: 02/25/18 19:33 The wet prep is consistent with bacterial vaginosis and some yeast seen We discussed the results, treatment in and follow up with the PCP Disposition Disposition: Discharge Clinical Impression: Sandra vaginitis Disposition: Home, Self-Care Condition: (1) Good Instructions: Bacterial Vaginosis (ED), Vaginitis (ED) Additional Instructions: call your OB for follow up first of the week if not improved be seen if you have fever, pain, vomiting, bleeding at the [place] [facility] triage or ED Prescriptions: Clotrimazole [Clotrimazole AF] 30 gm TP BID #1 cream..g. Metronidazole [Flagyl] 500 mg PO BID #14 tablet Forms: Patient Portal Access Time of Disposition: 19:35 Quality - Quality Measures Quality Measures: N/A - Blood Pressure Screening Does Patient Have Any of the Following: No Blood Pressure Classification: Pre-Hypertensive BP Reading Systolic Measurement: 117 Diastolic Measurement: 85 Screening for High Blood Pressure: < Pre-Hypertensive BP, F/U Documented > [ G8950] Pre-Hypertensive Follow-up Interventions: Referral to alternative/primary care provider.
[2018-02-25 19:20] LABS: HCG,QUALITATIVE URINE POSITIVE (NEGATIVE)
[2018-02-25 19:21] LABS: URINE BACTERIA 2+; URINE EPITHELIAL CELLS 21 - 35 (FEW)
[2018-02-28 14:07] LABS: GC SPECIMEN TYPE Vaginal
== END 2018-02-25 19:53 | disposition home or self-care (01) ==
LOC: ER 18:47
DX: O23.591 Infection of other part of genital tract in pregnancy, first trimester (principal); B37.3 Candidiasis of vulva and vagina; O99.331 Smoking (tobacco) complicating pregnancy, first trimester; F17.210 Nicotine dependence, cigarettes, uncomplicated; Z3A.14 14 weeks gestation of pregnancy
CPT/HCPCS: 99284 ×2; 81001; 81025; Q0111; 87210

== ENCOUNTER 2018-08-14 08:18 | Emergency (ER) | payer MEDICAID ==
--- NOTE | 2018-08-14 08:34 | Emergency Department Record ---
History of Present Illness - General Chief Complaint: Abdominal Pain Stated Complaint: abdominal pain Time Seen by Provider: 08/14/18 08:20 Source: Patient Mode of Arrival: Ambulatory Limitations: No limitations - History of Present Illness Initial Comments: 27 yo female present with left upper and left flank pain that started around 5 AM. The pain was sharp and cramp like. The pain is now slowly decreasing. She delivered a baby 2.5 weels ago. Near full term. Vaginal delivery. She had some post bleeding that did not require transfusion. No nausea or vomiting. No lower pain or vaginal bleeding. No rash. No fever. No history of renal stones. MD Complaint: Abdominal pain Onset/Timin -: Hour(s) Location: LLQ Radiation: LUQ Migration to: LUQ Severity: Moderate Quality: Sharp, Stabbing Consistency: Constant Improves With: Nothing Worsens With: Nothing - Related Data Previous Rx's Medication Instructions Recorded Acetaminophen [Tylenol Es] 500 mg PO Q6H #25 tablet 08/14/18 Allergies Allergy/AdvReac Type Severity Reaction Status Date / Time adhesive Allergy RASH Verified 06/15/18 14:17 amoxicillin [Amoxicillin] Allergy HIVES Unverified 04/05/18 11:30 hydromorphone HCl Allergy HIVES Unverified 04/05/18 11:30 [From Dilaudid] morphine Allergy HIVES Unverified 04/05/18 11:30 sulfamethoxazole Allergy HIVES Unverified 04/05/18 11:30 [From Bactrim] trimethoprim [From Bactrim] Allergy HIVES Unverified 04/05/18 11:30 Travel Screening - Travel/Exposure Within Last 30 Days Have you traveled within the last 30 days?: No - Travel/Exposure Within Last Year Have you traveled outside the [place] in the last year?: No - Additonal Travel Details Have you been exposed to anyone with a communicable illness?: No - Travel Symptoms Symptom Screening: None Review of Systems Constitutional: Denies: Chills, Fever, Malaise, Weakness Eyes: Denies: Eye discharge ENT: Denies: Congestion, Throat pain Respiratory: Denies: Cough, Dyspnea, Hemoptysis, Stridor, Wheezes Cardiovascular: Denies: Chest pain, Palpitations, Syncope Endocrine: Denies: Fatigue Gastrointestinal: Reports: Abdominal pain. Denies: Diarrhea, Nausea, Vomiting Genitourinary: Denies: Dysuria Musculoskeletal: Denies: Arthralgia, Back pain, Myalgia Skin: Denies: Bruising, Rash Neurological: Denies: Confusion Psychiatric: Denies: Anxiety Hematological/Lymphatic: Denies: Easy bleeding, Easy bruising Past Medical History - SOCIAL HISTORY Smoking Status: Light tobacco smoker (<10/day) Alcohol Use: None Drug Use: None - RESPIRATORY Hx Respiratory Disorders: No - CARDIOVASCULAR Hx Cardio Disorders: No - NEURO Hx Neuro Disorders: No - GI Hx GI Disorders: No - Hx Genitourinary Disorders: Yes Comment:: polycystic ovaries - ENDOCRINE Hx Endocrine Disorders: No - MUSCULOSKELETAL Hx Musculoskeletal Disorders: Yes Hx Back Injury: Yes Hx Musculoskeletal Disease: Yes (scoliosis) - PSYCH Hx Psych Problems: Yes Hx Anxiety: Yes - HEMATOLOGY/ONCOLOGY Hx Hematology/Oncology Disorders: No Family Medical History Any Significant Family History?: No Hx Cancer: Father, Mother Hx Diabetes: Grandparents Hx Heart Disease: Grandparents Physical Exam - General General Appearance: Alert, Oriented x3, Cooperative, No acute distress Limitations: No limitations - Head Head exam: Atraumatic, Normal inspection - Eye Eye exam: Normal appearance - ENT ENT exam: Normal exam Ear exam: Normal external inspection Nasal Exam: Normal inspection Mouth exam: Normal external inspection - Neck Neck exam: Normal inspection - Respiratory Respiratory exam: Normal lung sounds bilaterally. negative: Respiratory distress - Cardiovascular Cardiovascular Exam: Regular rate, Normal rhythm, Normal heart sounds - GI/Abdominal GI/Abdominal exam: Soft, Tenderness (minimally tender LUQ, soft). negative: Distended, Guarding, Rebound, Rigid - Rectal Rectal exam: Deferred - exam: Deferred - Extremities Extremities exam: Normal inspection, Full ROM, Normal capillary refill. negative: Tenderness - Back Back exam: Reports: CVA tenderness (L) (mild,). Denies: CVA tenderness (R), Muscle spasm, Tenderness - Neurological Neurological exam: Alert, Oriented X3 - Psychiatric Psychiatric exam: Normal affect, Normal mood - Skin Skin exam: Dry, Intact, Normal color, Warm Course Vital Signs 08/14/18 08:20 Temperature 98.0 F Pulse Rate 72 Respiratory 20 Rate Blood Pressure 102/63 Pulse Ox 99 - Reevaluation(s) Reevaluation #1: The patient allowed one attempt for a blood draw. This was a failed attempt. She is adamant about no additional attempts. She is a known difficult IV and lab draw. I explained the reasons for checking labs including but not limited to anemia . She understands and still declines. Her pain is resolving, her vitals are normal, her abdominal examination is benign and reassuring. She does agree to a UA. She is not having any vaginal bleeding. 08/14/18 08:47 08/14/18 09:26 UA is negative 08/14/18 09:29 The patient still declines lab draw Her abdominal examination is very mild at this time It is not an acute abdomen I do not think CT with the radiation risk is warranted at this time. We discussed DC home with reasons for recheck in the next 12-24 hours Medical Decision Making - Lab Data Result diagrams: 08/14/18 08:28 08/14/18 08:28 Disposition Disposition: Discharge Clinical Impression: Abdominal pain Disposition: Home, Self-Care Condition: (1) Good Instructions: Abdominal Pain (ED) Additional Instructions: Call your doctor for the next available follow up appointment Return to the ER for a recheck if worse, any new concerns or questions Be seen if you develop and vaginal bleeding or lower pelvic pain. Prescriptions: Acetaminophen [Tylenol Es] 500 mg PO Q6H #25 tablet Forms: Patient Portal Access Time of Disposition: 09:26 Quality - Quality Measures Quality Measures: N/A - Blood Pressure Screening Does Patient Have Any of the Following: No Blood Pressure Classification: Normal BP Reading Systolic Measurement: 102 Diastolic Measurement: 63 Screening for High Blood Pressure: < Normal BP, F/U Not Required > [G8783]
[2018-08-14 09:04] LABS: URINE APPEARANCE SL CLOUDY; URINE BILIRUBIN NEGATIVE (NEGATIVE); URINE BLOOD TRACE-I (NEGATIVE); URINE COLOR YELLOW; URINE GLUCOSE (UA) NEGATIVE (NEGATIVE); URINE KETONE NEGATIVE (NEGATIVE); URINE LEUKOCYTE ESTERASE TRACE (NEGATIVE); URINE NITRITE NEGATIVE (NEGATIVE); URINE PROTEIN NEGATIVE (NEGATIVE); URINE UROBILINOGEN 0.2 E.U./dL (0.20 - 1.00)
[2018-08-14 09:17] LABS: URINE BACTERIA NONE SEEN; URINE RBC NONE SEEN (NONE SEEN); URINE WBC NONE SEEN (0-2/hpf)
== END 2018-08-14 09:31 | disposition home or self-care (01) ==
LOC: ER 08:18
DX: O90.89 Other complications of the puerperium, not elsewhere classified (principal); R10.12 Left upper quadrant pain; O99.335 Smoking (tobacco) complicating the puerperium; F17.210 Nicotine dependence, cigarettes, uncomplicated
CPT/HCPCS: 81001; 99282; 99283

== ENCOUNTER 2018-12-03 13:24 | Emergency (ER) | payer MEDICAID ==
[2018-12-03] MEDS ORDERED: PROPARACAINE HCL OPTH 15ML BTL OPTH ONE (13:41)
[2018-12-03] MEDS ORDERED: GENTAMICIN SULFATE 0.3% OPTH 5 ML BTL OPTH ONE (13:54)
--- NOTE | 2018-12-03 13:54 | Emergency Department Record ---
History of Present Illness - General Chief complaint: Eye Problem Stated complaint: SCRATCHED LT EYE Time Seen by Provider: 12/03/18 13:35 Source: Patient, RN notes reviewed Mode of Arrival: Ambulatory - History of Present Illness Initial comments: left eye scratched with a fingernail of a 3 yr old 30 minutes ago. Onset/Timin -: Hour(s) Location: Left eye Place: Home Eye Symptoms: Burning, Itching, Pain, Redness Severity: Moderate Severity scale (1-10): 8 If Pain, Quality: Aching - Related Data With correction: Yes (near sight) Hx Tetanus Toxoid Vaccination: Yes Year of Tetanus Vaccination: 2016 Patient Tetanus UTD (within 5 yrs): Yes Home Medications Medication Instructions Recorded Confirmed Last Taken No Home Med [NO HOME MEDS] 12/03/18 12/03/18 Unknown Allergies Allergy/AdvReac Type Severity Reaction Status Date / Time adhesive Allergy RASH Verified 12/03/18 13:39 amoxicillin [Amoxicillin] Allergy HIVES Verified 12/03/18 13:39 hydromorphone HCl Allergy HIVES Verified 12/03/18 13:39 [From Dilaudid] morphine Allergy HIVES Verified 12/03/18 13:39 sulfamethoxazole Allergy HIVES Verified 12/03/18 13:39 [From Bactrim] trimethoprim [From Bactrim] Allergy HIVES Verified 12/03/18 13:39 Travel Screening - Travel/Exposure Within Last 30 Days Have you traveled within the last 30 days?: No - Travel/Exposure Within Last Year Have you traveled outside the [place] in the last year?: No - Additonal Travel Details Have you been exposed to anyone with a communicable illness?: No - Travel Symptoms Symptom Screening: None Review of Systems Reviewed: No additional complaints except as noted below Constitutional: Reports: As per HPI. Denies: Chills, Fever, Malaise, Night sweats, Weakness, Weight change Eyes: Reports: As per HPI, Eye pain. Denies: Eye discharge, Photophobia, Vision change ENT: Reports: As per HPI. Denies: Congestion, Dental pain, Ear pain, Epistaxis, Hearing loss, Throat pain Respiratory: Reports: As per HPI. Denies: Cough, Dyspnea, Hemoptysis, Stridor, Wheezes Cardiovascular: Reports: As per HPI. Denies: Arrhythmia, Chest pain, Dyspnea on exertion, Edema, Murmurs, Orthopnea, Palpitations, Paroxysmal nocturnal dyspnea, Rheumatic Fever, Syncope Endocrine: Reports: As per HPI. Denies: Fatigue, Heat or cold intolerance, Polydipsia, Polyuria Gastrointestinal: Reports: As per HPI. Denies: Abdominal pain, Constipation, Diarrhea, Hematemesis, Hematochezia, Melena, Nausea, Vomiting Genitourinary: Reports: As per HPI. Denies: Abnormal menses, Discharge, Dyspareunia, Dysuria, Frequency, Hematuria, Incontinence, Retention, Urgency Musculoskeletal: Reports: As per HPI. Denies: Arthralgia, Back pain, Gout, Joint swelling, Myalgia, Neck pain Skin: Reports: As per HPI. Denies: Bruising, Change in color, Change in hair/nails, Lesions, Pruritus, Rash Neurological: Reports: As per HPI. Denies: Abnormal gait, Confusion, Headache, Numbness, Paresthesias, Seizure, Tingling, Tremors, Vertigo, Weakness Psychiatric: Reports: As per HPI. Denies: Anxiety, Auditory hallucinations, Depression, Homicidal thoughts, Suicidal thoughts, Visual hallucinations Hematological/Lymphatic: Reports: As per HPI. Denies: Anemia, Blood Clots, Easy bleeding, Easy bruising, Swollen glands Past Medical History - SOCIAL HISTORY Smoking Status: Light tobacco smoker (<10/day) Alcohol Use: None Drug Use: None - RESPIRATORY Hx Respiratory Disorders: No - CARDIOVASCULAR Hx Cardio Disorders: No - NEURO Hx Neuro Disorders: No - GI Hx GI Disorders: No - Hx Genitourinary Disorders: Yes Comment:: polycystic ovaries - ENDOCRINE Hx Endocrine Disorders: No - MUSCULOSKELETAL Hx Musculoskeletal Disorders: Yes Hx Back Injury: Yes Hx Musculoskeletal Disease: Yes (scoliosis) - PSYCH Hx Psych Problems: Yes Hx Anxiety: Yes - HEMATOLOGY/ONCOLOGY Hx Hematology/Oncology Disorders: No Family Medical History Any Significant Family History?: No Hx Cancer: Father, Mother Hx Diabetes: Grandparents Hx Heart Disease: Grandparents Physical Exam - General General Appearance: Alert, Oriented x3, Cooperative, No acute distress - Head Head exam: Normal inspection - Eye Eye exam: PERRL, Conjunctival injection Pupils: Normal accommodation With correction: Yes (near sight) Image of Eyes: 1 - corneal abrasion - ENT ENT exam: Normal exam, Mucous membranes moist, Normal external ear exam, Normal orophraynx, TM's normal bilaterally Ear exam: Normal external inspection. negative: External canal tenderness Nasal Exam: Normal inspection. negative: Discharge, Sinus tenderness Mouth exam: Normal external inspection, Tongue normal Teeth exam: Normal inspection. negative: Dental caries Throat exam: Normal inspection. negative: Tonsillar erythema, Tonsillar exudate - Neck Neck exam: Normal inspection, Full ROM. negative: Tenderness - Respiratory Respiratory exam: Normal lung sounds bilaterally. negative: Respiratory distress - Cardiovascular Cardiovascular Exam: Regular rate, Normal rhythm, Normal heart sounds - GI/Abdominal GI/Abdominal exam: Soft, Normal bowel sounds. negative: Tenderness - Rectal Rectal exam: Deferred - exam: Deferred - Extremities Extremities exam: Normal inspection, Full ROM, Normal capillary refill. negative: Tenderness - Back Back exam: Reports: Normal inspection, Full ROM. Denies: Muscle spasm, Rash noted, Tenderness - Neurological Neurological exam: Alert, Normal gait, Oriented X3, Reflexes normal - Psychiatric Psychiatric exam: Normal affect, Normal mood - Skin Skin exam: Dry, Intact, Normal color, Warm Course Vital Signs 12/03/18 13:34 Temperature 98.0 F Pulse Rate 93 H Respiratory 18 Rate Blood Pressure 115/83 Pulse Ox 98 Disposition Clinical Impression: Corneal abrasion Qualifiers: Encounter type: initial encounter Laterality: left Qualified Code(s): S05.02XA - Injury of conjunctiva and corneal abrasion without foreign body, left eye, initial encounter Disposition: Home, Self-Care Condition: (1) Good Instructions: Corneal Abrasion (ED) Additional Instructions: follow up with family Dr in 3 days use gentomycin drops one drop four times a day ibuprofen 3 pills three times q day Forms: Patient Portal Access Time of Disposition: 14:00 Quality - Quality Measures Quality Measures: N/A - Blood Pressure Screening Does Patient Have Any of the Following: No Blood Pressure Classification: Pre-Hypertensive BP Reading Systolic Measurement: 115 Diastolic Measurement: 83 Screening for High Blood Pressure: < Pre-Hypertensive BP, F/U Documented > [G8950] Pre-Hypertensive Follow-up Interventions: Referral to alternative/primary care provider.
== END 2018-12-03 14:06 | disposition home or self-care (01) ==
LOC: ER 13:24
DX: S05.02XA Injury of conjunctiva and corneal abrasion without foreign body, left eye, initial encounter (principal); W50.4XXA Accidental scratch by another person, initial encounter; Y92.009 Unspecified place in unspecified non-institutional (private) residence as the place of occurrence of the external cause; F17.210 Nicotine dependence, cigarettes, uncomplicated
CPT/HCPCS: 99283

== ENCOUNTER 2019-01-28 11:54 | Emergency (ER) | payer MEDICAID ==
--- NOTE | 2019-01-28 12:26 | Emergency Department Record ---
History of Present Illness - General Chief Complaint: Fever Stated Complaint: fever/losing her voice Time Seen by Provider: 01/28/19 12:06 Source: Patient Mode of Arrival: Ambulatory Limitations: No limitations - History of Present Illness Initial Comments: The patient is here due to a 2 day hx of a mild dry cough, clear runny nose and mild hoarseness. The patient felt like she has had a fever at home and did take Tylenol this AM. She denies any ST, ear pain, SOB, sputum production or AMOS. MD Complaint: Fever Onset/Timin -: Days(s) Associated Symptoms: Denies other symptoms - Related Data Allergies Allergy/AdvReac Type Severity Reaction Status Date / Time adhesive Allergy RASH Verified 01/28/19 12:03 amoxicillin [Amoxicillin] Allergy HIVES Verified 01/28/19 12:03 hydromorphone HCl Allergy HIVES Verified 01/28/19 12:03 [From Dilaudid] morphine Allergy HIVES Verified 01/28/19 12:03 sulfamethoxazole Allergy HIVES Verified 01/28/19 12:03 [From Bactrim] trimethoprim [From Bactrim] Allergy HIVES Verified 01/28/19 12:03 Travel Screening - Travel/Exposure Within Last 30 Days Have you traveled within the last 30 days?: No Review of Systems Constitutional: Denies: Chills, Fever Eyes: Denies: Eye discharge ENT: Reports: Congestion Respiratory: Reports: Cough. Denies: Dyspnea Cardiovascular: Denies: Arrhythmia Past Medical History - SOCIAL HISTORY Smoking Status: Light tobacco smoker (<10/day) Alcohol Use: None Drug Use: None - RESPIRATORY Hx Respiratory Disorders: No - CARDIOVASCULAR Hx Cardio Disorders: No - NEURO Hx Neuro Disorders: No - GI Hx GI Disorders: No - Hx Genitourinary Disorders: Yes Comment:: polycystic ovaries - ENDOCRINE Hx Endocrine Disorders: No - MUSCULOSKELETAL Hx Musculoskeletal Disorders: Yes Hx Back Injury: Yes Hx Musculoskeletal Disease: Yes (scoliosis) - PSYCH Hx Psych Problems: Yes Hx Anxiety: Yes - HEMATOLOGY/ONCOLOGY Hx Hematology/Oncology Disorders: No Family Medical History Any Significant Family History?: Yes Hx Cancer: Father, Mother Hx Diabetes: Grandparents Hx Heart Disease: Grandparents Physical Exam - General General Appearance: Alert, Oriented x3, Cooperative, No acute distress - Head Head exam: Atraumatic, Normocephalic, Normal inspection - Eye Eye exam: Normal appearance, PERRL, EOMI - ENT ENT exam: Normal exam, Mucous membranes moist, Normal external ear exam, Normal orophraynx, TM's normal bilaterally Throat exam: Normal inspection. negative: Tonsillar erythema, Tonsillar exudate - Neck Neck exam: Normal inspection, Full ROM. negative: Tenderness - Respiratory Respiratory exam: Normal lung sounds bilaterally. negative: Respiratory distress - Cardiovascular Cardiovascular Exam: Regular rate, Normal rhythm, Normal heart sounds - GI/Abdominal GI/Abdominal exam: Soft, Normal bowel sounds. negative: Tenderness - Extremities Extremities exam: Full ROM, Normal capillary refill. negative: Normal inspecti on, Tenderness - Neurological Neurological exam: Alert, Normal gait. negative: Abnormal gait, Motor sensory deficit - Skin Skin exam: negative: Rash Course Vital Signs 01/28/19 12:03 Temperature 98.3 F Pulse Rate 94 H Respiratory 20 Rate Blood Pressure 128/90 Pulse Ox 98 - Reevaluation(s) Reevaluation #1: The patient is doing very well at this time. I did discuss the viral URI that she appears to have and the need for Tylenol or Motrin for fever. 01/28/19 13:01 Disposition Disposition: Discharge Clinical Impression: Viral URI with cough Disposition: Home, Self-Care Condition: (2) Stable Instructions: Viral Syndrome (ED) Additional Instructions: Please use Tylenol or Motrin for fever and please see your doctor if not better in 3 days. Return to the ER for any worsening symptoms. Forms: Patient Portal Access Time of Disposition: 13:02 Quality - Quality Measures Quality Measures: N/A - Blood Pressure Screening View Details: Yes Does Patient Have Any of the Following: No Blood Pressure Classification: Hypertensive Reading Systolic Measurement: 128 Diastolic Measurement: 90 Screening for High Blood Pressure: < First Hypertensive BP, F/U Documented > [G8950] First Hypertensive Follow-up Interventions: Referral to alternative/primary care provider.
== END 2019-01-28 13:33 | disposition home or self-care (01) ==
LOC: ER 11:54
DX: J06.9 Acute upper respiratory infection, unspecified (principal); R05 Cough; F17.210 Nicotine dependence, cigarettes, uncomplicated
CPT/HCPCS: 99282

== ENCOUNTER 2019-03-05 17:29 | Emergency (ER) | payer MEDICAID | END 2019-03-05 18:04 | disposition left against medical advice (07) | LOC: ER 17:29 | DX: Z53.20 Procedure and treatment not carried out because of patient's decision for unspecified reasons (principal) ==

== ENCOUNTER 2019-04-30 00:05 | Emergency (ER) | payer MEDICAID ==
--- NOTE | 2019-04-30 00:40 | Emergency Department Record ---
History of Present Illness - General Chief complaint: Flu Like Symptoms Stated complaint: FLU LIKE SYMPTOMS Time Seen by Provider: 04/30/19 00:35 Source: Patient Mode of Arrival: Ambulatory Limitations: No limitations - History of Present Illness Initial comments: The patient is here to have a flu swab done. She was exposed to Influenza by her yesterday who tested positive for Flu. Now she feels like she may have a fever over the last hour. She was started on tamiflu yesterday by the [facility]. There has been no ST, cough, runny nose or AMOS. The patient basically is here for a Flu test. MD Complaint: Lack of energy Onset/Timin -: Days(s) - Related Data Allergies Allergy/AdvReac Type Severity Reaction Status Date / Time adhesive Allergy RASH Verified 04/30/19 01:01 amoxicillin [Amoxicillin] Allergy HIVES Verified 04/30/19 01:01 hydromorphone HCl Allergy HIVES Verified 04/30/19 01:01 [From Dilaudid] morphine Allergy HIVES Verified 04/30/19 01:01 sulfamethoxazole Allergy HIVES Verified 04/30/19 01:01 [From Bactrim] trimethoprim [From Bactrim] Allergy HIVES Verified 04/30/19 01:01 Review of Systems Constitutional: Denies: Chills, Malaise Eyes: Denies: Eye discharge ENT: Denies: Congestion Respiratory: Denies: Cough Past Medical History - SOCIAL HISTORY Smoking Status: Light tobacco smoker (<10/day) Drug Use: None - RESPIRATORY Hx Respiratory Disorders: No - CARDIOVASCULAR Hx Cardio Disorders: No - NEURO Hx Neuro Disorders: No - GI Hx GI Disorders: No - Hx Genitourinary Disorders: Yes Comment:: polycystic ovaries - ENDOCRINE Hx Endocrine Disorders: No - MUSCULOSKELETAL Hx Musculoskeletal Disorders: Yes Hx Back Injury: Yes Hx Musculoskeletal Disease: Yes (scoliosis) - PSYCH Hx Psych Problems: Yes Hx Anxiety: Yes - HEMATOLOGY/ONCOLOGY Hx Hematology/Oncology Disorders: No Family Medical History Hx Cancer: Father, Mother Hx Diabetes: Grandparents Hx Heart Disease: Grandparents Physical Exam - General General Appearance: Alert, Oriented x3, Cooperative, No acute distress - Head Head exam: Atraumatic, Normocephalic - Eye Eye exam: Normal appearance, PERRL - ENT ENT exam: Normal exam, Mucous membranes moist, Normal external ear exam, Normal orophraynx, TM's normal bilaterally Throat exam: Normal inspection. negative: Tonsillar erythema, Tonsillar exudate - Neck Neck exam: Normal inspection, Full ROM. negative: Lymphadenopathy, Meningismus, Tenderness - Respiratory Respiratory exam: Normal lung sounds bilaterally. negative: Respiratory distress - Cardiovascular Cardiovascular Exam: Regular rate, Normal rhythm, Normal heart sounds - Extremities Extremities exam: negative: Normal inspection, Tenderness - Neurological Neurological exam: Alert. negative: Motor sensory deficit - Skin Skin exam: negative: Rash Course Vital Signs 04/30/19 00:21 Temperature 99 F Pulse Rate [ 91 H Pulse Ox Probe] Respiratory 20 Rate Blood Pressure 132/91 [Left Arm] Pulse Ox 96 - Reevaluation(s) Reevaluation #1: I did discuss the fact that her Flu test was neg but she most likely does have Influenza and the test was a false neg. She is to use Tylenol or Motrin for fever and to continue the Tamiflu. She is to see her PCP in 2-3 days if not better and to return to the ER for any worsening issues. 04/30/19 00:59 Medical Decision Making - Data Complexity MDM Data: Labs Ordered and/or Reviewed (Flu: Neg.) Disposition Disposition: Discharge Clinical Impression: Acute viral syndrome Disposition: Home, Self-Care Condition: (2) Stable Instructions: Influenza (ED) Additional Instructions: Please use Tylenol or Motrin for fever and continue the Tamiflu. Please see your doctor in 2-3 days if not better and return to the ER for any worsening symptoms. Forms: Patient Portal Access Time of Disposition: 01:01 Quality - Quality Measures Quality Measures: N/A - Blood Pressure Screening View Details: Yes Does Patient Have Any of the Following: No Blood Pressure Classification: Hypertensive Reading Systolic Measurement: 132 Diastolic Measurement: 91 Screening for High Blood Pressure: < First Hypertensive BP, F/U Documented > [G8950] First Hypertensive Follow-up Interventions: Referral to alternative/primary care provider.
[2019-04-30 00:57] LABS: INFLUENZA A NEGATIVE (NEGATIVE)
[2019-04-30 00:58] LABS: INFLUENZA B NEGATIVE (NEGATIVE)
== END 2019-04-30 01:25 | disposition home or self-care (01) ==
LOC: ER 00:05
DX: B34.9 Viral infection, unspecified (principal); F17.210 Nicotine dependence, cigarettes, uncomplicated
CPT/HCPCS: 87400; 99282